=== PATIENT | female | born 1965 | race African-American/Black ===

== ENCOUNTER 2022-02-15 01:27 | Day surgery (SDC) | payer OTHER, SELFPAY ==
[2022-02-09 09:22] VITALS: BMI 29.9
--- NOTE | 2022-02-09 09:29 | PC.NURSE ---
Report to the Outpatient Waiting Room, entrance under the green pavilion located off [facility], at time 0600 on date 02/15/22. OR Time: 0730. - You and your visitor will be asked a series of questions to screen for COVID 19 for your protection. - Only one visitor is allowed at this time. - The patient visitor is requested to leave or wait in car when not with patient. - A mask is required within the hospital. Patients may have clear liquids (water, carbonated beverages, clear teas, apple juice) until 3 hours prior to surgery with a maximum of 20 ounces. - No food from midnight until time of surgery Take the following medications with a SIP of water the morning of surgery: AMLODIPINE Medications to discontinue per physician: N/A Date to take last dose: N/A Please no make-up, nail faroese, hairspray, perfume, deodorant, or body powder the day of surgery. No jewelry (including any body piercings) or valuables the day of surgery, leave them at home. Please take a shower or bath the night before, or the morning of, surgery with an antibacterial soap. Wear comfortable, loose fitting clothing. - Jewelry must be removed prior to entering the operating room. Rings and piercings that are not removed may be cut off. - The hospital will not accept responsibility for valuables. - Please leave all valuables, including medications, at home the day of surgery. If you are going home after surgery, a licensed milk pickup truck driver must drive you home. - NO public transportation without another adult. - We recommend that an adult stay with you for 24 hours following discharge. - We also recommend that you do not drive, make important decision, drink alcoholic beverages, or take any drugs that were not prescribed by your health care provider for at least 24 hours after your discharge time. Follow any additional instructions given to you from your surgeon. If you or anyone in your household have experienced Covid symptoms in the past week, please notify your surgeon or the nurse liaison at the phone number below for possible testing. Telephone instructions given to DANNIE FULLER and asked if any additional questions and then verbalized understanding. Patient advised to call surgeon office or pre surgery nurse liaison [phone] if any additional questions.
--- NOTE | 2022-02-14 13:43 | WPDANESEPPF ---
Anes - Initial Pre Proc Eval Procedure: Operation Date: 02/15/22 07:30 Proposed Procedures p Repair Radial Digital Nerve Right Index Finger - Andrew Piper MD <Gustavo Barnard MD - Last Filed: 02/20/22 14:06> Date/Time: 02/14/22 13:43 <Gustavo Barnard MD - Last Filed: 02/20/22 14:06> Surgeon: Andrew Piper MD <Gustavo Barnard MD - Last Filed: 02/20/22 14:06> Pre Op Diagnosis: Lac Radial Digital Nerve Rt Index Finger <Gustavo Barnard MD - Last Filed: 02/20/22 14:06> Patient Data Age: 56 Gender: F Height: 1.8 m Weight: 97.52 kg <Gustavo Barnard MD - Last Filed: 02/20/22 14:06> Allergies Allergy/AdvReac Type Severity Reaction Status Date / Time No Known Allergies Allergy Unverified 02/09/22 09:20 <Gustavo Barnard MD - Last Filed: 02/20/22 14:06> Home Medications Medication Instructions Recorded Confirmed Type amlodipine 10 mg tablet 10 mg PO DAILY 06/29/19 02/15/22 History chlorthalidone 25 mg tablet 25 mg PO DAILY 06/29/19 02/15/22 History dulaglutide 1.5 mg/0.5 mL 0.5 mg subcut WEEKLY 06/29/19 02/15/22 History subcutaneous pen injector (Trulicity) glimepiride 4 mg tablet 4 mg PO BID 06/29/19 02/15/22 History famotidine 20 mg tablet 20 mg PO DAILY PRN Acid Reflux 02/09/22 02/09/22 History metformin 500 mg tablet 500 mg PO BID 02/09/22 02/15/22 History hydrocodone 5 mg-acetaminophen 325 1 tablet PO Q6H PRN pain #7 tabs 02/15/22 Rx mg tablet <Gustavo Barnard MD - Last Filed: 02/20/22 14:06> Patient hx anesthesia problems: none <Jeff Larios MD - Last Filed: 02/15/22 06:54> Family hx anesthesia problems: none <Jeff Larios MD - Last Filed: 02/15/22 06:54> Results Review: All pre-operative results and documents have been reviewed as part of the pre-operative evaluation. <Gustavo Barnard MD - Last Filed: 02/20/22 14:06> [facility] Past Medical History Medical History: Medical History (Updated 02/15/22 @ 06:53 by Jeff Larios MD) Diabetes GERD (gastroesophageal reflux disease) Hyperlipidemia Hypertension Migraine <Gustavo Barnard MD - Last Filed: 02/20/22 14:06> Surgical History Surgical History: Surgical History History of breast surgery History of endometrial ablation <Gustavo Barnard MD - Last Filed: 02/20/22 14:06> Family History Family History: Family History Mother Patient's mother is Hypertension Sibling Hypertension Family history of diabetes mellitus in first degree relative Carcinoma of colon Family history of malignant neoplasm of uterus Father Family history of lung cancer <Gustavo Barnard MD - Last Filed: 02/20/22 14:06> Social History Social History: Social History Smoking status: Never smoker Second hand tobacco smoke exposure: No Alcohol intake: never Substance use: never Substance use type: does not use Spiritual care concerns: No <Gustavo Barnard MD - Last Filed: 02/20/22 14:06> Anes - Eval Final PreProcedure Day of Procedure 02/14/22 13:43 <Gustavo Barnard MD - Last Filed: 02/20/22 14:06> Patient weight: overweight <Jeff Larios MD - Last Filed: 02/15/22 06:54> Heart: regular rate and rhythm <Jeff Larios MD - Last Filed: 02/15/22 06:54> Lungs: clear to auscultation <Jeff Larios MD - Last Filed: 02/15/22 06:54> Airway: Mallampati scale class II <Jeff Larios MD - Last Filed: 02/15/22 06:54> Neurological: alert and oriented <Jeff Larios MD - Last Filed: 02/15/22 06:54> Last oral intake: >/= 8 hours <Jeff Larios MD - Last Filed: 02/15/22 06:54> ASA classification: III <Jeff Larios MD - Last Filed: 02/15/22 06:54> [facility]
[2022-02-15] VITALS (8 sets, daily range): BP systolic 130–151; BP diastolic 80–91; PULSE 78–98; RESP 10–20; TEMP 36.3–36.7; O2SAT 93–100
--- NOTE | 2022-02-15 06:19 | ECG_ITS ---
Measurements Intervals [place] Rate: 73 P: 48 NV: 173 QRS: 4 QRSD: 98 T: 42 QT: 414 QTc: 458 Interpretive Statements SINUS RHYTHM NORMAL EKG NO PREVIOUS ECG AVAILABLE FOR COMPARISON Electronically Signed On 02-15-2022 18:17:42 CDT by Katie Lopes M.D.
[2022-02-15] MEDS: LACTATED RINGERS 1,000 ML 30 ML IV CONT ×2 (06:40→09:40)
[2022-02-15 07:06] LABS: Anion Gap 8 mmol/L (8-16); Blood Urea Nitrogen 9 mg/dL (7-17); Calcium 9.3 mg/dL (8.4-10.2); Carbon Dioxide 32 mmol/L (22-30); Chloride 100 mmol/L (98-107); Estimated CRCL calculation 112 ml/min; Estimated Glomerular Filt Rate > 60; Glucose 127 mg/dL (65-110); Potassium 4.5 mmol/L (3.4-5.0); Sodium 140 mmol/L (137-145)
--- NOTE | 2022-02-15 07:08 | WPDHPUPDATE1 ---
History and Physical Update Update Date/Time: 02/15/22 07:08 History and Physical has been reviewed, including an updated exam of the patient. There are NO changes in the patient's condition. Risks, benefits, and alternatives have been discussed and questions answered. Patient agrees to proceed with procedure.
[2022-02-15] MEDS: KETOROLAC 30 MG/ML VIAL (*BKC) IV PUSH (08:34)
[2022-02-15] MEDS: LIDO 1%/EPINEPHRINE 1:100,000 20 ML VIAL 10 ML INFILTRATE (08:38)
[2022-02-15] MEDS: BUPIVACAINE HCL 0.25% PF 30 ML VIAL 5 ML INFILTRATE (09:17)
[2022-02-15 09:47] LABS: Glucose Point of Care 173 mg/dl (65-105)
--- NOTE | 2022-02-15 10:15 | W.PM.PROC2 ---
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 She was then taken to the operating room where she was placed supine on the operating table. She was given general anesthesia with an LMA. The right upper extremity was prepped and draped in usual fashion. The site was marked for the ulnar based mid lateral flap centered over the laceration palmar proximal interphalangeal joint the area was infiltrated with 1% lidocaine with epinephrine. The extremity was exsanguinated with an Kishore wrap and the tourniquet inflated to 250 mmHg.. The incisions were made the skin flaps elevated to the ulnar side. These extended about to the midline of the finger. The neurovascular bundle was identified proximally and distally and dissected toward the wound. The neuroma was identified the digital artery was also lacerated at that site. The scarred tissue occluding neuroma were excised under the microscope. The nerve and is easily reach each other. They were freed of adventitial tissue. The repair was done with interrupted 9 0 nylon on on a BB 130-3 needle. 93 sutures were placed. There was no tension on this repair. The skin was then closed with running 5 0 nylon. A soft bandage was applied which contained a dorsal Alumafoam splint with the metacarpophalangeal and interphalangeal joints in 20-30 degrees flexion each.. Some quarter % plain bupivacaine was in infiltrated near the base of the index finger.. She was discharged from the operating room stable condition. Estimated Blood Loss -1.0 Tourniquet Time 64 Drains No Packing No Pathology None sent Complications No immediate complications Condition Stable Disposition PACU
[2022-02-15] MEDS: oxyCODONE HCL (*CRX) 5 MG TAB IR PO (10:53)
== END 2022-02-15 11:40 | disposition home or self-care (01) ==
PROVIDERS: Anesthesiology; PCP Internal Medicine; Visit Provider Plastic Surgery
PROC: (CPT 64831; principal; 2022-02-15 07:30)
DX: S64.490A Injury of digital nerve of right index finger, initial encounter (principal); W25.XXXA Contact with sharp glass, initial encounter; Z79.84 Long term (current) use of oral hypoglycemic drugs; E11.9 Type 2 diabetes mellitus without complications; K21.9 Gastro-esophageal reflux disease without esophagitis; I10 Essential (primary) hypertension; E78.5 Hyperlipidemia, unspecified
CPT/HCPCS: 64831; 36415; 80048; 82948; 93005; A9270; J0330; J1170; J1885; J2250; J2405; J2704; J3010; J7120

== ENCOUNTER 2025-03-26 19:34 | Emergency (ER) | payer OTHER, SELFPAY ==
--- OUTSIDE RECORDS SUMMARY | 2022-06-13 07:44 | XMS_ITS | Continuity of Care Document ---
Author Organization [facility] Address [address] [place] [address] Phone Care Team Providers Care Cyber [employer] Planner Name Role Phone Gaby YVONNE Kimberly Unavailable Unavailable Procedures Procedure Date Therapeutic Activities Neuromuscular Re-Ed Therapeutic Exercise Manual Therapy Hot or Cold Pack Therapeutic Activities Neuromuscular Re-Ed Therapeutic Exercise Manual Therapy Hot or Cold Pack OT Evaluation Low Complexity Therapeutic Activities Therapeutic Exercise Manual Therapy Hot or Cold Pack Progress Note Therapeutic Exercise Therapeutic Exercise Manual Therapy Therapeutic Exercise Manual Therapy Therapeutic Exercise Therapeutic Exercise Manual Therapy Therapeutic Exercise Manual Therapy Therapeutic Exercise Manual Therapy Therapeutic Exercise Manual Therapy PT Evaluation Moderate Complexity Therapeutic Exercise Neuromuscular Re-Ed Manual Therapy Therapeutic Exercise Manual Therapy Therapeutic Exercise Manual Therapy Therapeutic Exercise Manual Therapy Therapeutic Exercise Progress Note Therapeutic Exercise Manual Therapy Therapeutic Exercise Manual Therapy Therapeutic Exercise Manual Therapy Therapeutic Exercise Manual Therapy Therapeutic Exercise Manual Therapy Therapeutic Exercise Manual Therapy Therapeutic Exercise Manual Therapy PT Evaluation Moderate Complexity Therapeutic Exercise Neuromuscular Re-Ed Manual Therapy THERAPEUTIC EXERCISES NEUROMUSCULAR RE-ED HOT/COLD PACK ELECTRIC STIMULATION UNATT THERAPEUTIC EXERCISES NEUROMUSCULAR RE-ED THERAPEUTIC EXERCISES NEUROMUSCULAR RE-ED HOT/COLD PACK ELECTRIC STIMULATION UNATT THERAPEUTIC EXERCISES NEUROMUSCULAR RE-ED THERAPEUTIC EXERCISES NEUROMUSCULAR RE-ED THERAPEUTIC EXERCISES NEUROMUSCULAR RE-ED HOT/COLD PACK ELECTRIC STIMULATION UNATT THERAPEUTIC EXERCISES NEUROMUSCULAR RE-ED /COLD PACK ELECTRIC STIMULATION UNATT THERAPEUTIC EXERCISES NEUROMUSCULAR RE-ED HOT/COLD PACK ELECTRIC STIMULATION UNATT THERAPEUTIC EXERCISES NEUROMUSCULAR RE-ED HOT/COLD PACK ELECTRIC STIMULATION UNATT THERAPEUTIC EXERCISES NEUROMUSCULAR RE-ED HOT/COLD PACK ELECTRIC STIMULATION UNATT THERAPEUTIC EXERCISES MANUAL THERAPY /COLD PACK ELECTRIC STIMULATION UNATT THERAPEUTIC EXERCISES MANUAL THERAPY THERAPEUTIC EXERCISES MANUAL THERAPY THERAPEUTIC EXERCISES MANUAL THERAPY HOT/COLD PACK ELECTRIC STIMULATION UNATT Foam Roll Short THERAPEUTIC EXERCISES MANUAL THERAPY HOT/COLD PACK ELECTRIC STIMULATION UNATT THERAPEUTIC EXERCISES MANUAL THERAPY HOT/COLD PACK ELECTRIC STIMULATION UNATT THERAPEUTIC EXERCISES MANUAL THERAPY HOT/COLD PACK ELECTRIC STIMULATION UNATT THERAPEUTIC EXERCISES MANUAL THERAPY HOT/COLD PACK ELECTRIC STIMULATION UNATT THERAPEUTIC EXERCISES MANUAL THERAPY HOT/COLD PACK ELECTRIC STIMULATION UNATT THERAPEUTIC EXERCISES MANUAL THERAPY HOT/COLD PACK ELECTRIC STIMULATION UNATT PT EVALUATION THERAPEUTIC EXERCISES Advance Directives Directive Yes / No Effective Date File Name No Information Encounters Encounter Description Practice Location Reason(s) For Visit Diagnoses Date Provider Providers Copied on Encounter [facility], [place], [place], [id number], tel:[phone] [place] No Information 2 Gaby Kimberly. . [facility], [place], [place], [address], tel:[phone] [place] No Information 2 Gaby Kimberly. . [facility], [place], [place], [address], [place] tel:[phone] [place] No Information 2 Gaby Kimberly. . [facility], [place], [place], [address], tel:[phone] [place] No Information 2 Gaby Kimberly. . [facility], [place], [place], [address], [place] tel:[phone] [place] Presence of left artificial knee jointPain in left knee 8 [place]. , [place], [place]. [facility], [place], [place], [address], [place] tel:[phone] [place] Presence of left artificial knee jointPain in left knee 8 [place]. , [place]. [facility], [place], [place], [address], [place] tel:[phone] [place] Presence of left artificial knee jointPain in left knee 8 [place]. , [place]. [facility], [place], [place], [address], [place] tel:[phone] [place] Presence of left artificial knee jointPain in left knee 8 [place]. , [place]. [facility], [place], [place], [address], [place] tel:[phone] [place] Presence of left artificial knee jointPain in left knee 8 [place]. , [place]. [facility], [place], [place], [address], [place] tel:[phone] [place] Presence of left artificial knee jointPain in left knee 8 [place]. , [place]. [facility], [place], [place], [address], [place] tel:[phone] [place] Presence of left artificial knee jointPain in left knee 8 [place]. , [place]. [facility], [place], [place], [address], [place] tel:[phone] [place] Presence of left artificial knee jointPain in left knee 8 [place]. , [place]. [facility], [address], [place], [place], [address], [place] tel:[phone] [place] Presence of left artificial knee jointPain in left knee Dec- 0- 8 [place]. , [place]. [facility], [address], [place], [place], [address], [place] tel:[phone] [place] No Information 8 [place]. , [place]. Referring Provider: Gabo Herrera, [address] [place] [address] [address] [facility], [place], [address]. tel:[phone] [place] [address], [address], [place], [place], [address], [place] tel:[phone] [place] No Information 8 [place]. , [place]. Referring Provider: Gabo Herrera, [address] [place] [address] [address] [facility], [place], [address]. tel:[phone] [place] [address], [address], [place], [place], [address], [place] tel:[phone] [place] No Information 8 [place]. , [place]. Referring Provider: Gabo Herrera, [address] [place] [address] [address] [facility], [place], [address]. tel:[phone] [place] [address] [address], [place], [place], [address], [place] tel:[phone] [place] No Information 8 [place]. , [place]. Referring Provider: Gabo Herrera, [address] [place] [address] [address] [facility], [place], [address]. tel:[phone] [place] [address], [address], [place], [place], [address], [place] tel:[phone] [place] No Information 8 [place]. , [place]. Referring Provider: Gabo Herrera, [address] [place] [address] [address] [facility], [place], [address]. tel:[phone] [place] [address], [facility] [address], [place], [address], [place] tel:[phone] [place] No Information Taj-0 2-201 8 [place]. , [place]. Referring Provider: Gabo Herrera, [address] [place] [address], [place], [address]. tel:[phone] [place] [address] [facility] [address], [place], [place], [address], [place] tel:[phone] [place] No Information Dec-2 8-201 7 [place] , [place]. Referring Provider: Gabo Herrera, [address] [place] [address], [place], [address]. tel:[phone] [place] [address], [address] [place], [place] [address], [place], [address], [place] tel:[phone] [place] No Information Jun-2 6-201 7 [place]. , [place]. Referring Provider: Gabo Herrera, [address] [place] [address], [place], [address]. tel:[phone] [place] [address] [place], [place] [address], [place], [place], [address], [place] tel:[phone] [place] No Information Jun-2 0-201 7 [place]. , [place]. Referring Provider: Gabo Herrera, [address] [place] [address], [place], [address]. tel:[phone] [place] [address] [address], [place], [place], [address], [place] tel:[phone] [place] No Information Dec-1 8-201 7 [place]. , [place]. Referring Provider: Gabo Herrera, [address] [place] [address], [place], [address]. tel:[phone] [place] [address], [address], [place], [place], [address], [place] tel:[phone] [place] No Information Dec-1 5-201 7 [place]. , [place] Referring Provider: Gabo Herrera, [address] [place] [address], [place], [address]. tel:[phone] [place] [address], [address], [place], [address], [place] tel:[phone] [place] Other specified postprocedural statesPain in left kneeStiffness of left knee, not elsewhere classified [facility] [place] [place] Referring Provider: Gabo Herrera, [address] [place] [address], [place], [address]. tel:[phone] [place] [address], [address] [place], [place] [address], [place], [place], [address], [place] tel:[phone] [place] No Information Mar- [facility] [place] [place] Referring Provider: Gabo Herrera, [address] [place] [address], [place], [address]. tel:[phone] [place] [address], [address], [place], [address], [place] tel:[phone] [place] No Information Mar- 6 [facility] [place] Referring Provider: Gabo Herrera, [address] [place] [address], [place], [address]. tel:[phone] [place] [address], [address], [place], [place], [address], [place] tel:[phone] [place] No Information Mar-0 6 [place]. , [place] Referring Provider: Gabo Herrera, [address] [place] [address], [place], [address]. tel:[phone] [place] [address], [address], [place], [address], [place] tel:[phone] [place] No Information 3 6 [place] , [place] Referring Provider: Gabo Herrera, [address] [place] [address], [place], [address]. tel:[phone] [place] [address], [address], [place], [place], [address], [place] tel:[phone] [place] No Information 6 [place]. , [place] Referring Provider: Gabo Herrera, [address] [place] [address], [place], [address]. tel:[phone] [place] [address], [address], [place], [address], [place] tel:[phone] [place] No Information 6 [place]. , [place] Referring Provider: Gabo Herrera, [address] [place] [address], [place], [address]. tel:[phone] [place] [address] [address], [place], [place], [address], [place] tel:[phone] [place] No Information 6 [place]. , [place] Referring Provider: Gabo Herrera, [address] [place] [address], [place], [address]. tel:[phone] [place] [address], [address], [place], [place], [address], [place] tel:[phone] [place] No Information 6 [place]. , [place]. Referring Provider: Gabo Herrera, [address] [place] [address], [place], [address]. tel:[phone] [place] [address] [address], [place], [address], [place] tel:[phone] [place] No Information 6 [place]. , [place] Referring Provider: Gabo Herrera, [address] [place] [address], [place], [address]. tel:[phone] [place] [address], [address], [place], [place], [address], [place] tel:[phone] [place] No Information 6 [place]. , [place] Referring Provider: Gabo Herrera, [address] [place] [address], [place], [address]. tel:[phone] [facility], [address], [place], [place], [address], [place] tel:[phone] [place] No Information Feb-1 0- 6 [place]. , [place] Referring Provider: Gabo Herrera, [address] [place] [address] [address] [facility], [place], [address]. tel:[phone] [facility], [address], [place], [place], [address], [place] tel:[phone] [place] No Information Aug-0 8-201 6 Rimmamatilde Johnson. [id number] [place] [address], [address], [place], [place], [facility], [place]. tel: [phone] Referring Provider: Gabo Herrera, [address] [place] [address] [address] [facility], [place], [address]. tel:[phone] [place] [address], [address], [place], [address], [place] tel:[phone] [place] No Information Feb-0 5-201 6 [place]. , [place]. Referring Provider: Gabo Herrera, [address] [place] [address] [address] [facility], [place], [address]. tel:[phone] [place] [address], [address], [place], [address], [place] tel:[phone] [place] No Information Feb-0 3201 6 [place]. , [place]. Referring Provider: Gabo Herrera, [address] [place] [address] [address] [facility], [place], [address]. tel:[phone] [place] [address], [address], [place], [address], [place] tel:[phone] [place] No Information Feb-0 1 6 [place]. , [place]. Referring Provider: Gabo Herrera, [address] [place] [address] [address] [facility], [place], [address]. tel:[phone] [facility], [address], [place], [address], [place] tel:[phone] [place] No Information 7 6 [place]. Referring Provider: Gabo Herrera, [address] [place] [address] [address] [facility], [place], [address]. tel:[phone] [place] [address], [address] [place] [address] [address], [place], [place], [address], tel:[phone] [place] No Information 6-201 6 [place] Referring Provider: Gabo Herrera, [address] [place] [address] [address] [facility], [place], [address]. tel:[phone] [place] [address] [place] [address], [id number], tel:[phone] [place] No Information 6 [place] Referring Provider: Gabo Herrera, [address] [place] [address], [place], [address]. tel:[phone] [place] [address] [place] [address], [id number], [place] tel:[phone] [place] No Information 6 Karla Johnson. [address] [place] [address], [address], [place], [facility], . tel: [phone] Referring Provider: Gabo Herrera, [address] [place] [address], [place], [address]. tel:[phone] [facility] [address] [place] [address], [id number], [place] tel:[phone] [place] No Information 0 6 [place] Referring Provider: Gabo Herrera, [address] [place] [address] [address] [facility], [place], [place], [facility]. tel:[phone] [facility] [address], [place], [place], [address], [place] tel:[phone] [place] Incomplete rotatr-cuff tear/ruptr of l shoulder, not traumaPain in left shoulderMuscle weakness (generalized)St iffness of left shoulder, not elsewhere classified 6 [place], . Referring Provider: Gabo Herrera, [address], [place], [address]. tel:[phone] Family History Family Member Type Diagnosis Age At Onset No Information Payers Payer name Insurance type Covered libertarian ID Zoila aleman(bhavik Jay CI [id number] Social History Type Description Quantity Date Captured Comments Sex Female Smoking Status No Information Chief Complaint And Reason For Visit No Information Reason For Referral Reason For Referral No Information Plan Of Treatment Date Type Action Status Referral Ordered: Referrals: Specialist. Evaluate and Treat (related to Adjustment disorder with depressed mood) ordered Referral Ordered: Depression: Depression management program timeframe: 1 Day. (related to Depression) ordered Referral Ordered: Clinical Psychology (related to Depression) ordered History Of Present Illness Encounter Date Complaint History Of Prese nt Illness No Information Functional Status Date Functional Assessmen t No Information Instructions Date Instruction Additional Infor mation Dietary needs education Related to Overweight Dietary needs education Related to Overweight Prescribed activity/exercise edu cation Related to Overweight Prescribed activity/exercise edu cation Related to Overweight Assessments Type Assessment Date No Information Patient Care Teams Name Effective Dates (start - stop) Status Members No Information
--- OUTSIDE RECORDS SUMMARY | 2022-06-13 07:44 | XMS_ITS | Continuity of Care Document ---
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 . [facility], [place], [place], [address], tel:[phone] [place] No Information 2 Gaby Kimberly. . [facility], [place], [place], [address], [place] tel:[phone] [place] No Information 2 Gaby Kimberly. . [facility], [place], [place], [address], tel:[phone] [place] No Information 2 Gaby Kimberly. . [facility], [place], [place], [id number], [place] tel:[phone] [place] Presence of left artificial knee jointPain in left knee 8 [place]. , [place]. [facility], [place], [place], [id number], [place] tel:[phone] [place] Presence of left artificial knee jointPain in left knee 8 [place]. , [place]. [facility], [place], [place], [id number], [place] tel:[phone] [place] Presence of left artificial knee jointPain in left knee 8 [place]. , [place]. [facility], [place], [place], [id number], [place] tel:[phone] [place] Presence of left artificial knee jointPain in left knee 8 [place]. , [place]. [facility], [place], [place], [id number], [place] tel:[phone] [place] Presence of left artificial knee jointPain in left knee 8 [place]. , [place]. [facility], [place], [place], [address], [place] tel:[phone] [place] Presence of left artificial knee jointPain in left knee 8 [place]. , [place]. [facility], [place], [place], [id number], [place] tel:[phone] [place] Presence of left artificial knee jointPain in left knee 8 [place]. , [place]. [facility], [place], [place], [address], [place] tel:[phone] [place] Presence of left artificial knee jointPain in left knee 8 [place]. , [place]. [facility], [address], [place], [place], [address], [place] tel:[phone] [place] Presence of left artificial knee jointPain in left knee Dec- 0- 8 [place]. , [place]. [facility], [address], [place], [place], [address], [place] tel:[phone] [place] No Information 8 [place]. , [place]. Referring Provider: Gabo Herrera, [address] [place] [address] [address] [facility], [place], [address]. tel:[phone] [place] [address], [address], [place], [place], [address], [place] tel:[phone] [place] No Information 8 [place]. , [place]. Referring Provider: Gabo Herrera, [address] [place] [address] [address] [facility], [place], [address]. tel:[phone] [place] [address], [address], [place], [place], [address], [place] tel:[phone] [place] No Information 8 [place]. , [place]. Referring Provider: Gabo Herrera, [address] [place] [address] [address] [facility], [place], [address]. tel:[phone] [place] [address] [address], [place], [place], [address], [place] tel:[phone] [place] No Information 8 [place]. , [place]. Referring Provider: Gabo Herrera, [address] [place] [address] [address] [facility], [place], [address]. tel:[phone] [place] [address], [address], [place], [place], [address], [place] tel:[phone] [place] No Information 8 [place]. , [place]. Referring Provider: aGbo Herrera, [address] [place] [address] [address] [facility], [place], [address]. tel:[phone] [place] [address], [facility] [address], [place], [place], [address], [place] tel:[phone] [place] No Information Taj-0 2-201 8 [place]. , [place]. Referring Provider: Gabo Herrera, [address] [place] [address], [place], [address]. tel:[phone] [place] [address] [facility] [address], [place], [place], [address], [place] tel:[phone] [place] No Information Dec-2 8-201 7 [place]. , [place]. Referring Provider: Gabo Herrera, [address] [place] [address], [place], [address]. tel:[phone] [place] [address], [address] [place], [place] [address], [place], [place], [address], [place] tel:[phone] [place] No Information Jun-2 6-201 7 [place]. , [place]. Referring Provider: Gabo Herrera, [address] [place] [address], [place], [address]. tel:[phone] [place] [address] [place], [place] [address], [place], [place], [address], [place] tel:[phone] [place] No Information Jun-2 0-201 7 [place]. , [place]. Referring Provider: Gabo Herrera, [address] [place] [address], [place], [address]. tel:[phone] [place] [address] [address] [facility], [place], [place], [id number], [place] tel:[phone] [place] No Information Dec-1 8-201 7 [place]. , [place]. Referring Provider: Gabo Herrera, [address] [place] [address], [place], [address]. tel:[phone] [place] [address], [address], [place], [place], [address], [place] tel:[phone] [place] No Information Dec-1 5-201 7 [place]. , [place]. Referring Provider: Gabo Herrera, [address] [place] [address], [place], [address]. tel:[phone] [place] [address], [address] [facility], [place], [place], [address], [place] tel:[phone] [place] Other specified postprocedural statesPain in left kneeStiffness of left knee, not elsewhere classified 7 [facility] , [place]. Referring Provider: Gabo Herrera, [address] [place] [address], [place], [address]. tel:[phone] [place] [address], [address] [place], [place] [address], [place], [place], [address], [place] tel:[phone] [place] No Information Mar- 6 [facility] , [place]. Referring Provider: Gabo Herrera, [address] [place] [address], [place], [address]. tel:[phone] [place] [address], [address] [facility], [place], [place], [address], [place] tel:[phone] [place] No Information Mar- 6 [facility] , [place]. Referring Provider: Gabo Herrera, [address] [place] [address], [place], [address]. tel:[phone] [place] [address], [address] [facility], [place], [place], [address], [place] tel:[phone] [place] No Information Mar-0 6 [place]. , [place]. Referring Provider: Gabo Herrera, [address] [place] [address], [place], [address]. tel:[phone] [place] [address], [address] [facility], [place], [place], [address], [place] tel:[phone] [place] No Information 3 6 [place]. , [place]. Referring Provider: Gabo Herrera, [address] [place] [address], [place], [address]. tel:[phone] [place] [address], [address] [facility], [place], [place], [address], [place] tel:[phone] [place] No Information 6 [place]. , [place]. Referring Provider: Gabo Herrera, [address] [place] [address], [place], [address]. tel:[phone] [place] [address], [address] [facility], [place], [place], [address], [place] tel:[phone] [place] No Information 6 [place]. , [place]. Referring Provider: Gabo Herrera, [address] [place] [address], [place], [address]. tel:[phone] [place] [address] [address] [facility], [place], [place], [address], [place] tel:[phone] [place] No Information 6 [place]. , [place]. Referring Provider: Gabo Herrera, [address] [place] [address], [place], [address]. tel:[phone] [place] [address], [address] [facility], [place], [place], [address], [place] tel:[phone] [place] No Information 6 [place]. , [place]. Referring Provider: Gabo Herrera, [address] [place] [address], [place], [address]. tel:[phone] [place] [address] [address] [facility], [place], [place], [address], [place] tel:[phone] [place] No Information 6 [place]. , [place]. Referring Provider: Gabo Herrera, [address] [place] [address], [place], [address]. tel:[phone] [place] [address], [address] [facility], [place], [place], [address], [place] tel:[phone] [place] No Information 6 [place]. , [place]. Referring Provider: Gabo Herrera, [address] [place] [address], [place], [address]. tel:[phone] [facility], [address], [place], [place], [address], [place] tel:[phone] [place] No Information Feb-1 0- 6 [place]. , [place]. Referring Provider: Gabo Herrera, [address] [place] [address] [address] [facility], [place], [address]. tel:[phone] [facility], [address], [place], [place], [address], [place] tel:[phone] [place] No Information Aug-0 8-201 6 Rimmamatilde Johnson. [address] [place] [address], [address], [place], [place], [facility], [place]. tel: [phone] Referring Provider: Gabo Herrera, [address] [place] [address] [address] [facility], [place], [address]. tel:[phone] [place] [address], [address] [facility], [place], [place], [address], [place] tel:[phone] [place] No Information Feb-0 5-201 6 [place]. , [place]. Referring Provider: Gabo Herrera, [address] [place] [address] [address] [facility], [place], [address]. tel:[phone] [place] [address], [address] [facility], [place], [address], [place] tel:[phone] [place] No Information Feb-0 3201 6 [place]. , [place]. Referring Provider: Gabo Herrera, [address] [place] [address] [address] [facility], [place], [address]. tel:[phone] [place] [address], [address], [place], [place], [address], [place] tel:[phone] [place] No Information Feb-0 1 6 [place]. , [place]. Referring Provider: Gabo Herrera, [address] [place] [address] [address] [facility], [place], [address]. tel:[phone] [facility], [address], [place], [place], [address], [place] tel:[phone] [place] No Information 7 6 [place], [place]. Referring Provider: Gabo Herrera, [address] [place] [address] [address] [facility], [place], [address]. tel:[phone] [place] [address], [address] [place] [address] [address], [place], [place], [address], tel:[phone] [place] No Information 6-201 6 [place]. Referring Provider: Gabo Herrera, [address] [place] [address] [address] [facility], [place], [address]. tel:[phone] [place] [address] [place] [address], [id number], tel:[phone] [place] No Information 6 [place]. Referring Provider: Gabo Herrera, [address] [place] [address], [place], [address]. tel:[phone] [place] [address] [place] [address], [id number], [place] tel:[phone] [place] No Information 6 Karla Johnson. [address] [place] [address], [address], [place], [facility], . tel: [phone] Referring Provider: Gabo Herrera, [address] [place] [address], [place], [address]. tel:[phone] [facility] [address] [place] [address], [id number], [place] tel:[phone] [place] No Information 0 6 [place]. Referring Provider: Gabo Herrera, [address] [place] [address] [address] [facility], [place], [place], [facility]. tel:[phone] [facility] [address], [place], [place], [address], [place] tel:[phone] [place] Incomplete rotatr-cuff tear/ruptr of l shoulder, not traumaPain in left shoulderMuscle weakness (generalized)St iffness of left shoulder, not elsewhere classified 6 [place], . Referring Provider: Gabo Herrera, [address] [facility] [address], [place], [address]. tel:[phone] Family History Family Member Type Diagnosis Age At Onset No Information Payers Payer name Insurance type Covered green party ID Zoila aleman(bhavik Jay CI [id number] Social History Type Description Quantity Date Captured [...]
--- NOTE | ~2025-03-26 | XR_ITS ---
X-rays right knee Indication: Pain Comparison: None Technique: 4 views right knee Findings/Impression: 1. No fracture, dislocation, or effusion right knee. 2. Severe medial compartment and moderate lateral and patellofemoral compartment joint space narrowing. Reviewed, dictated and finalized at location R.
[2025-03-26 19:36] VITALS: BP 149/91; PULSE 94; RESP 15; TEMP 36.6; O2SAT 98
--- OUTSIDE RECORDS SUMMARY | 2025-03-26 19:36 | XMS_ITS | Clinical Summary ---
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 Gender Identity Not on file Sexual Orientation Not on file Plan of Treatment Health Maintenance Due Date Last Done Comments Hepatitis C Virus (HCV) Screening 1965 TdaP Immunization 1965 Pap Smear 12/28/1984 Cervical Cancer Screening (CCS) 12/28/1993 HPV/Cotest 12/28/1993 Cologuard 12/28/2008 Colonoscopy 12/28/2008 Colorectal Cancer Screening 12/28/2008 Immunochemical Fecal Occult Blood 12/28/2008 Pneumococcal Immunization (5 0+ years) (1 of 1 - PCV) 12/28/2013 Zoster Immunization (1 of 2) 12/28/2013 SARS-COV-2 Immunization ( - 2023- season) 2024 Influenza Immunization (#1) 2025 Respiratory Syncytial Virus (RSV) Immunization (Adult) (1 - 1-dose 75+ series) 12/28/2038 Hepatitis B Immunization Aged Out No longer eligible based on patient's age to complete this topic Human Papillomavirus (HPV) Immunization Aged Out No longer eligible b ased on patient's age to complete this topic Meningococcal Immunization (ACWY) Aged Out No longer eligible based on patient's age to complete this topic Rotavirus Immunization Aged Out No lo nger eligible based on patient's age to complete this topic
--- OUTSIDE RECORDS SUMMARY | 2025-03-26 19:36 | XMS_ITS | Clinical Summary ---
Author Organization [facility] [address] [place] [id number] Care Team Providers Care Monitor Worker Name Role Phone Patrizia Olguin PTA Unavailable Unavailable Patricia Dill NP Primary Care Provider [phone] Allergies No known active allergies Medications hydroCHLOROthiazi de (HYDRODIURIL) 25 mg tablet Take 1 tablet (25 mg total) by mouth daily 017 Active omega-3 fatty acids-fish oil 300-1,000 mg capsule Take 2 capsules (2 g total) by mouth daily Active rosuvastatin (CRESTOR) 20 mg tabletIndications :Mixed hyperlipidemia Take 1 tablet (20 mg total) by mouth daily 90 tablet 3 024 Active metFORMIN (GLUCOPHAGE) 500 mg tabletIndications :Type 2 diabetes mellitus with hyperglycemia, with long-term current use of insulin (HCC) Take 1 tablet (500 mg total) by mouth 2 (two) times a day with meals 180 tablet 3 024 Active bisacodyl EC (DULCOLAX EC) 5 mg EC tabletIndications :constipation Take 1 tablet (5 mg total) by mouth daily as needed for constipation 4 tablet 024 Active glimepiride (AMARYL) 4 mg tablet Take 1 tablet (4 mg total) by mouth 2 (two) times a day Active fluticasone propionate (FLONASE) 50 mcg/actuation nasal spray Administer 1 spray into each nostril daily as needed for rhinitis Active loratadine (Claritin) 10 mg tablet Take 1 tablet (10 mg total) by mouth daily Active TRUEplus Pen Needle 32 gauge x 532 needle USE 1 ONCE DAILY 024 Active cholecalciferol (VITAMIN D-3) 32724 unit capsule Take 1 capsule (10,000 Units total) by mouth daily Active amLODIPine (NORVASC) 10 mg tablet Take 1 tablet (10 mg total) by mouth daily Active docusate sodium (COLACE) 100 mg capsuleIndication s:constipation Take 1 capsule (100 mg total) by mouth 2 (two) times a day Active psyllium, aspartame, SF (METAMUCIL SF) 3.4 gram packet Take 1 packet by mouth daily Active blood-glucose meter,continuous (Dexcom G7 Manager Retail Sales) miscIndications:T ype 2 diabetes mellitus with hyperglycemia, with long-term current use of insulin ([facility]) Check blood sugars 4-6 times daily 1 each 024 Active blood-glucose sensor (Dexcom G7 Sensor) deviceIndications :Type 2 diabetes mellitus with hyperglycemia, with long-term current use of insulin ([facility]) Change every 10 days. Check blood sugars 4-6 times daily 3 each 024 Active blood-glucose meter miscIndications:T ype 2 diabetes mellitus with hyperglycemia, with long-term current use of insulin ([facility]) Use daily or as directed for monitoring of diabetes. 1 each 024 Active blood glucose diagnostic (glucose blood) stripIndications: Type 2 diabetes mellitus with hyperglycemia, with long-term current use of insulin ([facility]) One strip three times daily 300 each 1 024 2024 Active lancets miscIndications:T ype 2 diabetes mellitus with hyperglycemia, with long-term current use of insulin ([facility]) 1 each by other route 3 (three) times a day 300 each 1 024 Active semaglutide (RYBELSUS) 14 mg tablet Take 1 tablet (14 mg total) by mouth desktop publishing associate before breakfast 30 tablet 2 025 Active SEMGLEE-yfgn 100 unit/mL (3 mL) pen for injectionIndicati ons:Type 2 diabetes mellitus with hyperglycemia, with long-term current use of insulin (HCC) Inject 30 Units under the skin daily 15 mL 2 025 Active insulin glargine 100 unit/mL (3 mL) pen for injection Inject under the skin 22 units 2023 Discontinued Active Problems Problem Noted Date Diagnosed Date Screening for colon cancer 05/01/2024 Class 1 obesity with serious comorbidity and body mass index (BMI) of 30.0 to 30.9 in adult 02/24/2024 Assessment & Plan (03/10/2024 1:10 PM CDT): HPI: Condition is not at/near goal. Goal BMI <30. A&P: Healthy, high-protein, lower carbohydrate, lower fat lifestyle and exercise for 150min/week recommended. Assessment & Plan (02/24/2024 12:13 PM CDT): HPI: Condition is not at/near goal. Goal BMI <30. A&P: Healthy, high-protein, lower carbohydrate, lower fat lifestyle and exercise for 150min/week recommended. Vitamin D deficiency 02/24/2024 Assessment & Plan (02/24/2024 12:19 PM CDT): HPI: Condition is unknown, no data to review at this time to make an evaluation. A&P: Discussed/ordered labs. Hyperlipidemia 04/25/2017 Assessment & Plan (06/10/2024 9:36 AM TRAFFIC MONITOR SPECIALIST): HPI: Condition is not at/near goal. Has not been consistent with statin therapy in the past due to causing dry mouth. Patient requesting switch in statin therapy. Previously on Lovastatin. Lab Results Component Value Date TRIG 159 (H) 02/24/2024 TRIG 123 04/26/2017 HDL 52 02/24/2024 HDL 47 (L) 04/26/2017 LDLCALC 149 (H) 02/24/2024 NONHDLCHOL 181 02/24/2024 NONHDLCHOL 149 (H) 04/26/2017 A&P: Discussed/ordered labs. Recommend low-fat diet & increased activity. Continue Rosuvastatin 20 mg nightly. Assessment & Plan (03/10/2024 1:39 PM CDT): HPI: Condition is not at/near goal. Has not been consistent with statin therapy in the past due to causing dry mouth. Patient requesting switch in statin therapy. Lab Results Component Value Date TRIG 159 (H) 02/24/2024 TRIG 123 04/26/2017 HDL 52 02/24/2024 HDL 47 (L) 04/26/2017 LDLCALC 149 (H) 02/24/2024 NONHDLCHOL 181 02/24/2024 NONHDLCHOL 149 (H) 04/26/2017 A&P: Discussed/ordered labs. Recommend low-fat diet & increased activity. We will discontinue lovastatin 20 mg nightly. Begin taking rosuvastatin 20 mg nightly. Assessment & Plan (02/24/2024 12:24 PM CDT): HPI: Condition is unknown, no data to review at this time to make an evaluation. Patient does admit to not being consistent with statin therapy. A&P: Discussed/ordered labs. Continue lovastatin 20 mg nightly and [place] 3. Will follow up in a few weeks to discuss lab results. Recommend fish oil 2000-2400mg of EPA/DHA. You will find this by looking at the ingredients section of the bottle of fish oil. Please add the EPA and DHA numbers together and take enough capsules to meet the 2000-2400mg every day. This dose will help bring down your triglycerides along with a lower carb lifestyle and exercise. The brand Playdek Professional [place] 3 2100 Olcenic Blend is a good brand and you will only need to take one capsule daily. Hypertension 04/25/2017 Assessment & Plan (06/10/2024 9:48 AM TRAFFIC MONITOR SPECIALIST): HPI: Condition is stable. A&P: Discussed/ordered labs. Continue Amlodipine 10 mg daily and Hydrochlorothiazide 25 mg daily. Assessment & Plan (03/10/2024 1:11 PM CDT): HPI: Condition is stable. A&P: Discussed/ordered labs. Continue on amlodipine 5 mg daily and hydrochlorothiazide 25 mg daily. Assessment & Plan (02/24/2024 12:14 PM CDT): HPI: Condition is stable. A&P: Discussed/ordered labs. Continue on amlodipine 5 mg daily and hydrochlorothiazide 25 mg daily. Seasonal rhinitis 04/25/2017 Type 2 diabetes mellitus 04/25/2017 Assessment & Plan (06/10/2024 12:41 PM TRAFFIC MONITOR SPECIALIST): Condition is improving, but not at goal. Personally reviewed most recent A1c 8.1% was 10.7% Goal A1c 6.9% or less, as close to <6.5%. Lab Results Component Value Date HGBA1C 8.1 06/10/2024 HGBA1C 10.7 (H) 02/24/2024 HGBA1C 7.7 (H) 11/27/2017 Maintenance Diabetic (monofilament) foot exam - protective senses intact. Last annual dilated eye exam was 03/2023 - will fax for results. Last annual urine microalbumin/creatinine ratio. Lab Results Component Value Date ALBCREATRATU 10 02/24/2024 BP Management B/P today - good. Patient currently is not on an TRUDI/ARB. Goal blood pressure is <140/90, long-term blood pressure goal is to be as close to 120/80 as possible. Dyslipidemia Management Personally reviewed most recent LDL as shown below. Patient is on a statin cholesterol lowering medication - Rosuvastatin. Goal of less than 70. Lab Results Component Value Date LDLCALC 149 (H) 02/24/2024 Diabetes Complications History of macrovascular disease (CVA, [place], PVD) is not present. Complications secondary to diabetes - none. Taking baby aspirin daily: No. Smoking status: non-smoker. Medications High dose Metformin not tolerated due to GI upset. Ozempic not covered. Trulicty poorly tolerated due to side effects of nausea, vomiting, constipation, severe abdominal pain. Will instead start Mounjaro in hopes better tolerated/decreased side effects. She has been checking blood sugars at home fasting in the AM without Trulicity (since she ran out) have been around 220s-250s. Is asking for CGM machine - will order today. Continue: Glimepiride 4 mg twice daily. Metformin 500 mg twice daily. Increase: Insulin glargine from 22 units to 25 units daily. Start: Mounjaro 2.5mg weekly x 4 wks, then increase to 5mg weekly x 4 wks, then increase to 7.5mg weekly x 4 wks Discussed that fluid in window needs to be clear, prime with the 2 dots on first use of pen only. Patient showed how to use the medication. Discussed the importance of site rotation, stay 2 fingerbreadths away from belly button. Inject until you hear the full click, then count to 5 before removing pen. Discussed the importance of cutting meals in half starting after first dose. Discussed that this will slow gastric emptying which will make pt feel full longer and fill up faster. Discussed the one bite or one gulp too much scenario that can increase nausea/vomiting. Listen to your body. Reiterated that pt does not have family or personal history of medullary thyroid cancer or pancreatitis. Discussed labs/ordered labs that have been ordered if applicable. Discussed eating a healthy, low carb diet - include fresh fruits and vegetables daily. Diabetic education/nutritional counseling available if you have not had this before or annually. Encouraged to try moving at least a total of 30 minutes/day. Just move more. Instructed to wash, dry, lotion, and check feet daily. Instructed to notify office if blood sugars are less than 80 or greater than 250 for 3 days. Assessment & Plan (03/10/2024 1:41 PM CDT): Condition is not at/near goal. Personally reviewed most recent A1c 10.7% was 7.7%. Goal A1c 6.9% or less, as close to <6.5%. Lab Results Component Value Date HGBA1C 10.7 (H) 02/24/2024 HGBA1C 7.7 (H) 11/27/2017 HGBA1C 7.9 (H) 04/26/2017 Maintenance Diabetic (monofilament) foot exam - protective senses intact. Last annual dilated eye exam was 03/2023 - will fax for results. Last annual urine microalbumin/creatinine ratio. Lab Results Component Value Date ALBCREATRATU 10 02/24/2024 BP Management B/P today - good. Patient currently is not on an TRUDI/ARB. Goal blood pressure is <140/90, long-term blood pressure goal is to be as close to 120/80 as possible. Dyslipidemia Management Personally reviewed most recent LDL as shown below. Patient is on a statin cholesterol lowering medication - Rosuvastatin. Goal of less than 70. Lab Results Component Value Date LDLCALC 149 (H) 02/24/2024 Diabetes Complications History of macrovascular disease (CVA, [place], PVD) is not present. Complications secondary to diabetes - none. Taking baby aspirin daily: No. Smoking status: non-smoker. Medications Continue: Glimepiride 1 mg twice daily. Insulin glargine 22 units daily. Start: Metformin 500 mg twice daily. Ozempic 0.25mg injection once weekly x4 weeks, then increase to 0.5 mg injection once weekly x8 weeks. Has also been checking AM fasting blood sugars which she states has been around the 200s. Discussed labs/ordered labs that have been ordered if applicable. Discussed eating a healthy, low carb diet - include fresh fruits and vegetables daily. Diabetic education/nutritional counseling available if you have not had this before or annually. Encouraged to try moving at least a total of 30 minutes/day. Just move more. Instructed to wash, dry, lotion, and check feet daily. Instructed to notify office if blood sugars are less than 80 or greater than 250 for 3 days. Assessment & Plan (02/24/2024 12:18 PM CDT): Condition is unknown, no data to review at this time to make an evaluation. Personally reviewed most recent A1c ?% was ?%. Goal A1c 6.9% or less, as close to <6.5%. Lab Results Component Value Date HGBA1C 7.7 (H) 11/27/2017 HGBA1C 7.9 (H) 04/26/2017 Maintenance Diabetic (monofilament) foot exam - protective senses intact. Last annual dilated eye exam was 03/2023 - will fax for results. Last annual urine microalbumin/creatinine ratio unknown - ordered today. No results found for: ALBCREATRATU BP Management B/P today - good. Patient currently is not on an TRUDI/ARB. Goal blood pressure is <140/90, long-term blood pressure goal is to be as close to 120/80 as possible. Dyslipidemia Management Personally reviewed most recent LDL as shown below. Patient is on a statin cholesterol lowering medication - Lovastatin. Goal of less than 70. No results found for: LDLCALC Diabetes Complications History of macrovascular disease (CVA, [place], PVD) is not present. Complications secondary to diabetes - none. Taking baby aspirin daily: No. Smoking status: non-smoker. Medications Patient is not intolerant to Metformin but does refuse to take - states she's read that it is bad for you. Continue: Glimepiride 1 mg twice daily. Insulin glargine 22 units daily. Has also been checking AM fasting blood sugars which she states has been around the 200s. Will follow up in a few weeks to discuss lab results/adjust medications. Discussed labs/ordered labs that have been ordered if applicable. Discussed eating a healthy, low carb diet - include fresh fruits and vegetables daily. Diabetic education/nutritional counseling available if you have not had this before or annually. Encouraged to try moving at least a total of 30 minutes/day. Just move more. Instructed to wash, dry, lotion, and check feet daily. Instructed to notify office if blood sugars are less than 80 or greater than 250 for 3 days. Sciatica of right side 12/31/2016 Assessment & Plan (12/31/2016 2:12 PM CDT): The patient was not getting any relief for her pain with nonsteroidal anti-inflammatories. She was prescribed a Medrol Dosepak to take in descending order. If she is not getting better with medication she was advised to get back into her maintenance painter Arthritis of right knee 12/31/2016 Assessment & Plan (12/31/2016 2:13 PM CDT): The patient was advised of the knee sleeves could be obtained through the drugstore is under not generally provided through the offices the following Medicare guidelines. Ankylosis of joint of shoulder region 02/20/2016 Overview (10/12/2016): Ankylosis, left shoulder Degeneration of intervertebral disc of lumbar re gion 09/19/2015 Overview (10/12/2016): DDD (degenerative disc disease), lumbar Chondromalacia of patella 05/29/2013 Chronic knee pain after tota l replacement of left knee joint 12/02/2012 Assessment & Plan (03/10/2024 1:42 PM CDT): HPI: Condition is not at/near goal. Did have total knee replacement 12/10/2017. States she is feeling like she is having worsening stiffness/pain. Denies any specific injury. Does not currently follow up with Orthopedics. States that she takes ibuprofen when it bothers her which typically helps. Recent left knee imaging shows small effusion but otherwise unremarkable hardware. A&P: Discussed/ordered labs. We will send to physical therapy and refer to orthopedic surgery for further management. Assessment & Plan (02/24/2024 12:23 PM CDT): HPI: Condition is not at/near goal. Did have total knee replacement 12/10/2017. States she is feeling like she is having worsening stiffness/pain. Denies any specific injury. Does not currently follow up with Orthopedics. States that she takes ibuprofen when it bothers her which typically helps. A&P: Discussed/ordered labs. Will get left knee xray & will follow up in a few weeks to discuss results. Resolved Problems Problem Noted Date Diagnosed Date Resolved Date Aftercare following left kne e joint replacement surgery 12/11/2017 02/24/2024 Primary osteoarthritis of left knee 11/25/2017 02/24/2024 Overview (11/25/2017): Added automatically from request for surgery [id number] Acute medial meniscal tear, left, subsequent encounter 05/06/2017 02/24/2024 Assessment & Plan (07/15/2017 8:25 AM TRAFFIC MONITOR SPECIALIST): Patient's symptoms are likely due to her underlying arthritis. She may find the use of naproxen helpful. She plans on return to work in two weeks Assessment & Plan (05/06/2017 5:23 PM CDT): Patient has a medial meniscal tear seen by MRI. She is having ongoing pain is not responding to her underlying treatment of her arthritis and does not appear to have end-stage arthritis. As such she wants proceed with definitive treatment have recommended arthroscopic partial meniscectomy. She was advised if she has significant arthritis she may have symptoms persist.The risks of knee arthroscopy include incisional numbness, hypersensitive scar, neurovascular compromise, infection, recurrent tearing, persistent pain due to underlying arthritis, medical and anesthetic risks including and is willing to proceed Acute medial meniscus tear of left knee 04/29/2017 02/24/2024 Assessment & Plan (04/29/2017 3:52 PM CDT): Patient notes recurring pain and swelling in her left knee. She did not find a treatment for arthritis with cortisone injection and/or Synvisc to be helpful other than a short period of time of alleviation. The patient may have developed a recurrent degenerative meniscal tear would recommend an MRI of the knee. Once results are available will initiate appropriate treatment. Nontraumatic tear of rotator cuff 11/17/2015 02/24/2024 Overview (10/11/2016): Incomplete rotator cuff tear or rupture of left shoulder, not specified as traumatic Right knee pain 11/13/2012 02/24/2024 Tear of medial cartilage or meniscus of knee, current 11/13/2012 02/24/2024 Encounters Date Type Department Care Team Description 02/01/2025 Telephone [facility] Family Medicine at [address] [place] [id number] Patricia Dill NP 01/04/2025 Telephone [facility] Medicine at [address] [place] [address] Patricia Dill SLOOP CAPTAIN Prior Auth (PA on Rybelsus) from Last 3 Months Immunizations Immunization Administration Dates Next Due Influenza, Unspecified 03/08/2023(Deferred: Liset ent decision) Tdap 03/09/2015,03/13/2013 Surgical History Surgery Date Site/Laterality Comments KNEE ARTHROSCOPY Arthroscopy knee CHOLECYSTECTOMY Cholecystectomy JOINT REPLACEMENT Left COLONOSCOPY Medical History Medical History Date Comments Arthritis Arthritis; Comme nts: KSA 10/19/2014 - Hypertension Hyperlipidemia Type 2 diabetes mellitus Acute medial meniscal tear, left, subsequent encounter 05/06/2017 Acute medial meniscus tear o f left knee 04/29/2017 Aftercare following left kne e joint replacement surgery 12/11/2017 Nontraumatic tear of rotator cuff 11/17/2015 Incomplete rotator cuff tear or rupture of left shoulder, not specified as traumatic Primary osteoarthritis of left knee 11/25/2017 Added automatically from request for surgery [id number] Right knee pain 11/13/2012 Family History Medical History Relation Name Comments Diabetes Brother Heart disease Brother Hypertension Brother Prostate cancer Brother Hypertension Father Hypertension Mother Hypertension Other 1 Family history of Hypertension; Lung cancer Other 2 Family history of Cancer, lung; Colon polyps Sister Diabetes Sister Heart disease Sister Hypertension Sister Ovarian cancer Sister Breast cancer Neg Hx Colon cancer Neg Hx Relation Name Status Comments Brother Father Mother Other 1 Other 2 Sister Social History Tobacco Use Types Packs/Day Years Used Date Smoking Tobacco: Never Smokeless Tobacco: Never Alcohol Use Standard Drinks/Week Comments No 0 (1 standard drink = 0.6 oz pur e alcohol) AUDIT-C Answer Date Recorded Q1: How often do you have a drink containing alc ohol? Monthly or less 06/10/2024 Q2: How many drinks containi ng alcohol do you have on a typical day when you are drinking? 1 or 2 06/10/2024 Q3: How often do you have si x or more drinks on one occasion? Less than monthly 06/10/2024 PHQ-2 Answer Date Recorded PHQ-2 Total Score (If total score is 3 or more points, staff should administer the PHQ-9) 0 06/10/2024 Personal Safety Answer Date Recorded Have you ever been in or are you currently in a harmful physical or emotional relationship or is someone making you feel afraid or unsafe? 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 Not on file Not on file Obstetrics History Para Term AB IAB SAB Ectopic Multiple Livin g Live Births 1 1 1 Date Outcome GA Total Labor Labor/2nd/3rd Weight Sex Type Anes PTL Arabella A1 A5 Name Clin Term Last Filed Vital Signs Vital Sign Reading Time Taken Comments Blood Pressure 130/70 07/21/2024 10:54 AM TRAFFIC MONITOR SPECIALIST Pulse 84 06/10/2024 9:20 AM TRAFFIC MONITOR SPECIALIST Temperature 35.9 C (96.7 F) 05/13/2024 8:31 AM TRAFFIC MONITOR SPECIALIST Respiratory Rate 16 06/10/2024 9:20 AM TRAFFIC MONITOR SPECIALIST Oxygen Saturation 95% 06/10/2024 9:20 AM TRAFFIC MONITOR SPECIALIST Inhaled Oxygen Concentration - - Weight 99.3 kg (219 lb) 07/21/2024 10:54 AM TRAFFIC MONITOR SPECIALIST Height 182.9 cm (6' 0.01) 07/21/2024 10:54 AM Angie TRAVIS Body Mass Index 29.69 07/21/2024 10:54 AM TRAFFIC MONITOR SPECIALIST Plan of Treatment Health Maintenance Due Date Last Done Comments Foot Exam 1965 Hepatitis B Screening 12/28/1981 Pneumococcal vaccine <65 (1 of 2 - PCV) 12/28/1982 Zoster Vaccine (1 of 2) 12/28/2013 Dilated Eye Exam 03/12/2024 03/12/2023 Hemoglobin A1C 12/09/2024 06/10/2024, 02/05, 11/27/2017, Additional history exists Albumin Creatinine Ratio, Urine 02/23/2025 Lipid Panel 02/23/2025 02/24/2024, 04/26/2017 eGFR 02/23/2025 02/24/2024, 12/06/2017 Breast Cancer Screening-Mammogram 02/26/2025 024, 12/15/2012 Influenza Vaccine (#1) 2025 DTaP/Tdap/Td Vaccine (3 - Td or Tdap) 03/09/2025 03/09/2015, 03/13/2013 Depression Screening 06/10/2025 06/10/2024, 02/24/20 Cervical Cancer Screening 07/21/2025 07/21/2024, Regular Well Visit/Exam 18-64 07/21/2025 07/21/2024, 06/10/2024 Colon Cancer Screening-Colonoscopy 05/13/2027 05/13/2024, 05/12/2024 Hepatitis C Screening Completed 02/24/2024 Colon Cancer Screening-CT Colonography Discontinued 05/13/2024, 05/12/2024 Colon Cancer Screening-DNA Stool Discontinued 05/13/20, 05/12/2024 Colon Cancer Screening-FIT Discontinued 05/13/2024, Colon Cancer Screening-Sigmoidoscopy Discontinued 05/13/2024, 05/12/2024 Medical Devices Implanted Type Area Hourly Team Members Device Identifier Shelf Expiration Date Model / Serial / Lot [employer]uy [employer] Smartset High Viscosity Cement Bone 40gm Gentamicin - [id number] Implanted:Qty: 1 on 12/10/2017 by Anthony Arriola MD at [facility] Left: Knee [employer] 03/07/2019 [id number] / / [id number] Attune Rp Tib Base Sz 6 Por - [id number] Implanted:Qty: 1 on 12/10/2017 by Anthony Arriola MD at [facility] Left: Knee [employer] 02/04/2027 [id number] / / [id number] Component Femoral Attune 6 Knee Left Cemented Posterior Stabilize Sterile - [id number] Implanted:Qty: 1 on 12/10/2017 by Anthony Arriola MD at [facility] Left: Knee [employer] 10/06/2027 [id number] / / [id number] Dome Patellar Attune Aox H38 Mm Knee Cemented Medialize Sterile - [id number] Implanted:Qty: 1 on 12/10/2017 by Anthony Arriola MD at [facility] Left: Knee [employer] 08/07/2022 [id number] / / [id number] Insert Tibial 6 7mm Knee Aox Post Stab Rotate Platform - [id number] Implanted:Qty: 1 on 12/10/2017 by Anthony Arriola MD at [facility] Left: Knee [employer] 10/05/2021 [id number] / / [id number] Procedures Procedure Name Priority Date/Time Associated Diagnosis Comments HIGH RISK HPV DNA DETECTION WITH GENOTYPING Routine 07/21/2024 11:03 AM TRAFFIC MONITOR SPECIALIST Screening for cervical cancer POCT HEMOGLOBIN A1C Routine 06/10/2024 9 :29 AM TRAFFIC MONITOR SPECIALIST Type 2 diabetes mellitus with hyperglycemia, with long-term current use of insulin (HCC) COLONOSCOPY 05/13/2024 7:46 AM TRAFFIC MONITOR SPECIALIST SCREENING MAMMOGRAM BILATERAL W REBECCA Schedule Routine, Read Routine (OP Routine) 02/27/2024 10:51 AM CDT Encounter for screening mammogram for malignant neoplasm of breast ALBUMIN CREATININE RATIO, URINE Routine 02/24/2024 11:36 AM CDT Type 2 diabetes mellitus without complication, with long-term current use of insulin (HCC) HEPATITIS C ANTIBODY Routine 02/24/2024 11:32 AM CDT Encounter for hepatitis C screening test for low risk patient EGFR Routine 02/24/2024 11:32 AM CDT Type 2 diabetes mellitus without complication, with long-term current use of insulin (HCC) LIPID PANEL Routine 02/24/2024 11:32 AM CDT Type 2 diabetes mellitus without complication, with long-term current use of insulin (HCC) DIABETIC EYE EXAM Routine 03/12/2023 4:0 7 PM CDT from Last 3 Months or Most Recently Relevant to Health Maintenance Results * High Risk HPV DNA Detection with Genotyping (Molecular component) (07/21/2024 11:03 AM TRAFFIC MONITOR SPECIALIST) HPV HR 16 Not Detected Not Detected [facility] Comment:Testing performed by : [facility], [address] [place]., [address] HPV HR 18 Not Detected Not Detected [facility] Comment:Testing performed by : [facility], [address] [facility] [place] [address] HPV HR Non 16/18 Not Detected Not Detected [facility]AP[facility] Comment: Interpretive Data Nucleic acid amplification for detection of high-risk Human Papilloma virus (HPV) is performed by the Camila Ike 6800 HPV test. This assay specifically detects HPV-16 and HPV-18 genotypes. The following HPV genotypes are detected as high-risk HPV: HPV-31, 33, 35, ,39, 45, 51, 52, 56, 58, 59, 66, and 68. This assay has been approved by the [place] Food and Drug Administration for detection of HPV in cervical specimens collected by a physician using an endocervical brush/spatula or cervical broom and placed in the ThinPrep Pap Test PreservCyt collection containers. The performance characteristics of this test have been verified by the [facility] Molecular Infectious Disease laboratory. Correlate with separately reported cytology results, as applicable. Interpretive data last revised 22 Testing performed by: [facility], [address] [place]., [address] Endocervical 07/21/2024 11:0 3 AM TRAFFIC MONITOR SPECIALIST 07/22/2024 8:26 AM TRAFFIC MONITOR SPECIALIST Narrative [facility] - 07/22/2024 11:50 PM TRAFFIC MONITOR SPECIALIST Clinical history and diagnosis->routine Number of vials->1 Testing type->Screening Last menstrual period (date if known)->postmenopausal us Jay Nava MD LAB BODY FLUIDS AND STOO LS ORDERABLES Final Result [facility] [address] [facility] [place] [address] [facility] * POCT hemoglobin A1c (06/10/2024 9:29 AM TRAFFIC MONITOR SPECIALIST) Hemoglobin A1C, POC 8.1 4.0 - 5.6 % Blood 06/10/2024 9:29 AM TRAFFIC MONITOR SPECIALIST us Patricia Dill NP POINT OF CARE TEST ORDERABLES Final Result * Colonoscopy (05/13/2024 7:46 AM TRAFFIC MONITOR SPECIALIST) Anatomical Region Laterality Modality Other Narrative Procedure Note Garland Lopez MD - 05/13/2024 7:46 AM CST [facility] GI ENDOSCOPY Patient Name: Cris Kline Procedure Date: 05/13/2024 7:46 AM Date of : 1965 Admit Type: Outpatient Age: 58 Gender: Female Attending MD: Garland Lopez M.D. Room: [facility] ENDOSCOPY ROOM 06 Note Status: Finalized Procedure: Colonoscopy Indications: Screening for colorectal malignant neoplasm, poorprep on prior colonoscopy therefore colonoscopy is being repeated Referring MD: Providers: Garland Lopez M.D. Medicines: Monitored Anesthesia Care Complications: No immediate complications. Estimated Blood Loss: Estimated blood loss: none. Procedure: Pre-Anesthesia Assessment: - Prior to the procedure, a History and Physicalwas performed, and patient medications and allergieswere reviewed. The risks and benefits of the procedureand the sedation options and risks were discussed withthe patient. All questions were answered and informed consent was obtained. Patient identification and proposed procedure were verified. After reviewingthe risks and benefits, the patient was deemed in satisfactory condition to undergo the procedure.The anesthesia plan was to use monitored anesthesiacare (MAC). Immediately prior to administration of medications, the patient was re-assessed foradequacy to receive sedatives. The heart rate, respiratory rate, oxygen saturations, blood pressure, adequacyof pulmonary ventilation, and response to care were monitored throughout the procedure. The physical status of the patient was re-assessed after the procedure. The benefits, risks and alternatives of theprocedure and sedation were discussed and informed consentwas obtained. All questions were answered. Please referto the signed informed consent document in the medical record. The scope was passed under direct vision.The Colonoscope was introduced through the anus and advanced to the cecum, identified by appendiceal orifice and ileocecal valve. The colonoscopy was performed without difficulty. The patient tolerated the procedure well. The quality of the bowel preparation was good. Scope withdrawal time was 14 minutes. Prep was administered in a split dose. Findings: The perianal and digital rectal examinations were normal. A few small-mouthed diverticula were found in the sigmoid colon. Non-bleeding internal hemorrhoids were found during retroflexion. The hemorrhoids were small. The exam was otherwise without abnormality. Impression: - Diverticulosis in the sigmoid colon. - Non-bleeding internal hemorrhoids. - The examination was otherwise normal. - No specimens collected. Recommendation: - Patient has a contact number available for emergencies. The signs and symptoms of potential delayed complications were discussed with thepatient. Return to normal activities tomorrow. Written discharge instructions were provided to thepatient. - High fiber diet. - Continue present medications. - Await pathology results. - Repeat colonoscopy in 3 years for surveillance.All future procedures with extended bowel prep. Garland Lopez M.D. Garland Lopez M.D. 05/13/2024 8:32:53 AM . Number of Addenda: 0 Note Initiated On: 05/13/2024 7:46 AM Recognized by the [employer] for promoting quality in endoscopy us Garland Lopez MD ENDOSCOPY PROCEDURES Final Resul t * SCREENING MAMMOGRAM BILATERAL W REBECCA (02/27/2024 10:51 AM CDT) Anatomical Region Laterality Modality Breast Bilateral Mammography Impressions 02/28/2024 12:29 PM CDT BI-RADS ATLAS category (overall): 1 - Negative There is no mammographic evidence of malignancy. A 1 year screening mammogram is recommended. The patient has been or will be contacted. We recommend annual screening mammography for women at average risk of breast cancer beginning at age 40, based on guidelines of the [employer] (ACR Practice Parameter for the Performance of Screening and Diagnostic Mammography) and [employer]. For women with and elevated risk of breast cancer, please refer to the ACR Practice Parameter for specific screening recommendations. The patient will be entered into a reminder system with a target due date of 1 year for her next screening exam. Narrative 02/28/2024 12:29 PM CDT SCREENING MAMMOGRAM BILATERAL W REBECCA: 02/27/24 The study was acquired using full field digital technology and interpreted from soft copy. 2D digital mammographic views, as well as 3D digital tomosynthesis were performed in the CC and MLO projections. CLINICAL: Encounter for screening mammogram for malignant neoplasm of breast. No relevant medical history has been documented for this patient. No known family history of breast cancer. COMPARISONS: 03/20/2021 Breast Imaging Screening Outside Reference 04/20/2019 Breast Imaging Screening Outside Reference 02/25/2018 Breast Imaging Screening Outside Reference 12/16/2012 Screening Mammogram BREAST TISSUE: There are scattered areas of fibroglandular density. FINDINGS: No suspicious masses, suspicious calcifications, or other suspicious findings are seen within either breast. There has been no suspicious change. us Patricia Dill NP IMG MAMMO PROCEDURES Final Re sult * Albumin Creatinine Ratio, Urine (02/24/2024 11:36 AM CDT) Albumin Ur 16.8 mg/L Comment: Interpretive Data No reference range established. Current interpretive data was last revised 2018. Creatinine Ur 172.0 mg/dL [facility] Comment: Interpretive Data No reference range established. Current interpretive data was last revised 2018. Albumin Creatinine Ratio, Ur 10 1 - 29 mg/g [facility]MAN Urine 02/24/2024 11:3 6 AM CDT 02/24/2024 12:48 PM CDT us Patricia Dill NP LAB URINE ORDERABLES Final Re sult [facility] [address] [facility] [place] [address] * eGFR (02/24/2024 11:32 AM CDT) eGFR >90 >=60 mL/min/1. 73 m2 Comment: Interpretive Data Reference Interval Normal >/= 90 mL/min/1.73m2 Mildly decreased* 60 - 89 mL/min/1.73m2 Mildly to moderately decreased 45 - 59 mL/min/1.73m2 Moderately to severely decreased 30 - 44 mL/min/1.73m2 Severely decreased 15 - 29 mL/min/1.73m2 Kidney Failure < 15 mL/min/1.73m2 *Relative to young adult level Estimated glomerular filtration rate is determined by the 2020 CKD-EPI equation recommended by the National Kidney Foundation (A Unifying Approach to GFR Estimation: Recommendations of the NKF-ASK Task Force on Reassessing the Inclusion of Race in Diagnosing Kidney Disease, JASN 2020). The CKD-EPI equation should not be used for patients with unstable renal function and has not been validated in children and those over 70. Current interpretive data was last reviewed 2021. Blood 02/24/2024 11:3 2 AM CDT 02/24/2024 12:48 PM CDT Patricia Dill NP LAB BLOOD ORDERABLES Final Re sult [facility] [address] [facility] [place] [address] * Hepatitis C antibody Blood (02/24/2024 11:32 AM CDT) Hep C Ab Nonreactive Nonreactive Comment: Antibodies to HCV not detected. Does NOT exclude the possibility of recent exposure to HCV. Current interpretive data was last revised on 22 Interpretive Data Nonreactive: Antibodies to HCV not detected. Does NOT exclude the possibility of recent exposure to HCV. Equivocal: Equivocal for HCV antibodies. Supplemental molecular testing will be automatically performed to determine infection status in accordance with current CDC screening recommendations. Reactive: Positive for HCV antibodies. This may represent current or past HCV infection. Supplemental molecular testing will be automatically performed to determine current infection status in accordance with current CDC screening recommendations. Interpretive data was last revised on 2019. Blood 02/24/2024 11:3 2 AM CDT 02/24/2024 12:48 PM CDT us Patricia J. Brown SLOOP CAPTAIN LAB MICROBIOLOGY - GENERAL OR DERABLES Final Result [facility] [address] [facility] [place] [address] * (ABNORMAL) Lipid panel (02/24/2024 11:32 AM CDT) Cholesterol 233(H) 30 - 199 mg/dL Comment: Interpretive Data Ages < or = 19 years Acceptable: <170 mg/dL Borderline high: 170-199 mg/dL High: >or= 200 mg/dL Ages > or = 20 years Desirable: <200 mg/dL Borderline high: 200-239 mg/dL High: >or= 240 mg/dL Literature References: 1. Expert Panel on Integrated Guidelines for Cardiovascular Health and Risk Reduction in Children and Adolescents. Pediatrics 2011;128:S213 2. NCEP Expert Panel. Circulation 2004;110:227 Current Interpretive Data was last revised on 2018. Triglycerides 159(H) <=149 mg/dL [facility]UREN Comment: Interpretive Data Ages < or = 9 years Acceptable: <75 mg/dL Borderline high: 75-99 mg/dL High: >or= 100 mg/dL Ages 10 to 20 years Acceptable: <90 mg/dL Borderline high: 90-129 mg/dL High: >or= 130 mg/dL Ages > or = 20 years Desirable: <150 mg/dL Borderline high: 150-199 mg/dL High: 200-499 mg/dL Very high: >or= 499 mg/dL Literature References: 1. Expert Panel on Integrated Guidelines for Cardiovascular Health and Risk Reduction in Children and Adolescents. Pediatrics 2011;128:S213 2. NCEP Expert Panel. Circulation 2004;110:227 Current Interpretive Data was last revised on 2018. HDL 52 >=40 mg/dL LAUREN Comment: Interpretive Data Ages < or = 19 years Acceptable: >45 mg/dL Borderline low: 40-45 mg/dL Low: <40 mg/dL Ages > or = 20 years Desirable: >or= 60 mg/dL Low: <40 mg/dL Literature References: 1. Expert Panel on Integrated Guidelines for Cardiovascular Health and Risk Reduction in Children and Adolescents. Pediatrics 2011;128:S213 2. NCEP Expert Panel. Circulation 2004;110:227 Current Interpretive Data was last revised on 2018. LDL, calculated 149(H) <=129 mg/dL [facility] Comment: Interpretive Data Ages < or = 19 years Acceptable: <110 mg/dL Borderline high: 110-129 mg/dL High: >or= 130 mg/dL Ages > or = 20 years Optimal: <100 mg/dL Near optimal: 100-129 mg/dL Borderline high: 130-159 mg/dL High: >160 mg/dL Literature References: 1. Expert Panel on Integrated Guidelines for Cardiovascular Health and Risk Reduction in Children and Adolescents. Pediatrics 2011;128:S213 2. NCEP Expert Panel. Circulation 2004;110:227 Current Interpretive Data was last revised on 2018. Non-HDL Cholesterol 181 mg/dL [facility] CHAPMAN Comment: Interpretive Data Ages < or = 19 years Acceptable: <120 mg/dL Borderline high: 120-144 mg/dL High: >145 mg/dL Ages > or = 20 years When triglycerides are >200 mg/dL, Non-HDL cholesterol is a secondary target of therapy with treatment goals that are 30 mg/dL greater than the LDL cholesterol target. Literature References: 1. Expert Panel on Integrated Guidelines for Cardiovascular Health and Risk Reduction in Children and Adolescents. Pediatrics 2011;128:S213 2. NCEP Expert Panel. Circulation 2004;110:227 Current Interpretive Data was last revised on 2018. Chol/HDL ratio 4 [facility] CHAPMAN Blood 02/24/2024 11:3 2 AM CDT 02/24/2024 12:48 PM CDT Patricia Dill NP LAB BLOOD ORDERABLES Final Re sult [facility] [address] [facility] [place] [address] * Diabetic Eye Exam (03/12/2023 4:07 PM CDT) Historical Provider HEALTH MAINTENANCE Final Result from Last 3 Months or Most Recently Relevant to Health Maintenance Insurance [email or web address] [facility] [place] [address] Advance Directives For more information, please contact: [phone] * Full Code (Latest Code Status on File) Date Activated Date Inactivated Comments 12/13/2017 1:14 PM 05/12/2024 6:58 AM * Full Code Date Activated Date Inactivated Comments 12/10/2017 3:40 PM 12/11/2017 7:13 PM Care Teams Monitor Worker Relationship Specialty Start Date End Date Patricia Dill NP [address] [place] [address] [place] [id number] PCP - General Family Medicine 02/24/24 Patrizia Olguin PTA Director Supply Chain Physical Therapy 12/06/17
--- OUTSIDE RECORDS SUMMARY | 2025-03-26 21:58 | XMS_ITS | Clinical Summary ---
Author Organization 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
--- OUTSIDE RECORDS SUMMARY | 2025-03-26 21:58 | XMS_ITS | Clinical Summary ---
Author Organization [facility] Address [address] [place] [address] Care Team Providers Care Offset Press Operator Name Role Phone Alex Owens MD Primary Care Provider Gabo Herrera MD Unavailable [phone] Walter Lewis MD Unavailable [phone] Source Comments [facility],non-owned Affiliates and Associated Physician Practices is amultiple site organization consisting of ambulatory clinics and hospital sitesin [place], [place], [place] and [place]. This disclosure is being madepursuant to the Care Everywhere program and may not contain all information available regarding this patient. Last updated 18.[facility] Allergies No known active allergies Medications * Be aware that medications may not be up to date on this document. Alwaysverify current medications with the patient. 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 Gender Identity Not on file Sexual Orientation Not on file Last Filed Vital Signs Vital Sign Reading Time Taken Comments Blood Pressure 163/102 11/13/2012 2:28 PM CDT Pulse 80 11/13/2012 2:28 PM CDT Temperature - - Respiratory Rate - - Oxygen Saturation - - Inhaled Oxygen Concentration - - Weight 102.1 kg (225 lb) 11/13/2012 2:28 PM CDT Height 182.9 cm (6') 11/13/2012 2:28 PM CDT Body Mass Index 30.52 11/13/2012 2:28 PM CDT Plan of Treatment Health Maintenance Due Date Last Done Comments COLOGUARD (AGES 45-75) - COL ON CA SCREENING 1965 COLON MONITORING 1965 COLONOSCOPY - COLON CA SCREENING 1965 CT COLONOGRAPHY - COLON CA SCREENING 1965 Colorectal Cancer Screening 1965 FIT - COLON CA SCREENING 1965 FLEX SIG - COLON CA SCREENING 1965 LIPID TESTING 1965 MAMMOGRAM 1965 HIV SCREENING 12/28/1978 HEPATITIS C SCREENING 12/24/1981 DTAP/TDAP/TD VACCINES (1 - Tdap) 12/28/1982 PNEUMOCOCCAL VACCINE 50+ (1 of 1 - PCV) 12/28/2013 ZOSTER VACCINE (1 of 2) 12/28/2013 DEPRESSION SCREENING 07/08/2024 COVID-19 VACCINE (1 - 2023-2 5 season) 2025 INFLUENZA VACCINE (#1) 2025 Respiratory Syncytial Virus (RSV) Vaccine Pt: or over 60 yrs (1 - 1-dose 75+ series) 12/28/2038 HEPATITIS B VACCINE Aged Out No longe r eligible based on patient's age to complete this topic HIB VACCINE Aged Out No longer eligi ble based on patient's age to complete this topic HPV VACCINE Aged Out No longer eligi ble based on patient's age to complete this topic MENINGOCOCCAL (Group B) VACC INE SHARED DECISION-MAKING Aged Out No longer eligibl e based on patient's age to complete this topic MENINGOCOCCAL GROUPS A/C/Y/W VACCINE Aged Out No longer eligible b ased on patient's age to complete this [place] [place] [address] [employer] Care Teams Offset Press Operator Relationship Specialty Start Date End Date Alex Owens MD PCP - General Internal Medicine 11/13/12 Gabo Herrera MD Orthopedic Surgery 11/13/12 Walter Lewis MD Orthopedic Surgery 11/28/12
--- OUTSIDE RECORDS SUMMARY | 2025-03-26 21:58 | XMS_ITS | Clinical Summary ---
Author Organization [facility] Physician Office Building [address] [place] [id number] Care Team Providers Care Automatic Pilot Mechanic Name Role Phone Patrizia Olguin PTA Unavailable Unavailable Patricia Dill NP Primary Care Provider [phone] Allergies No known active allergies Medications hydroCHLOROthiazi [...] ONCE DAILY 024 Active cholecalciferol (VITAMIN D-3) 62922 unit capsule Take 1 capsule (10,000 Units [...] daily Active blood-glucose meter,continuous (Dexcom G7 Manager Ed) miscIndications:T ype 2 diabetes mellitus with hyperglycemia, with long-term current use of insulin ([facility]) Check blood sugars 4-6 times daily 1 each 024 Active blood-glucose sensor (Dexcom G7 Sensor) deviceIndications :Type 2 diabetes mellitus with hyperglycemia, with long-term current use of insulin ([facility]) Change every 10 days. Check blood sugars 4-6 times daily 3 each 024 Active blood-glucose meter miscIndications:T ype 2 diabetes mellitus with hyperglycemia, with long-term current use of insulin ([facility]) Use daily or as directed for monitoring of diabetes. 1 each 024 Active blood glucose diagnostic (glucose blood) stripIndications: Type 2 diabetes mellitus with hyperglycemia, with long-term current use of insulin ([facility]) One strip three times daily 300 each 1 024 2024 Active lancets miscIndications:T ype 2 diabetes mellitus with hyperglycemia, with long-term current use of insulin ([facility]) 1 each by other route 3 (three) times a day 300 each 1 024 Active semaglutide (RYBELSUS) 14 mg tablet Take 1 tablet (14 mg total) by mouth early childhood special educator before breakfast 30 tablet 2 025 Active [...] 04/25/2017 Assessment & Plan (06/10/2024 9:36 AM CHLOROBUTADIENE SCRUBBER OPERATOR): HPI: Condition is not at/near goal. Has [...] labs. Continue lovastatin 20 mg nightly and [place] 3. Will follow up in a few [...] lower carb lifestyle and exercise. The brand [employer] Professional [place] 3 2100 Olcenic Blend is a good brand and you will only need to take one capsule daily. Hypertension 04/25/2017 Assessment & Plan (06/10/2024 9:48 AM CHLOROBUTADIENE SCRUBBER OPERATOR): HPI: Condition is stable. A&P: Discussed/ordered labs. [...] 04/25/2017 Assessment & Plan (06/10/2024 12:41 PM CHLOROBUTADIENE SCRUBBER OPERATOR): Condition is improving, but not at goal. [...] Diabetes Complications History of macrovascular disease (CVA, [place], PVD) is not present. Complications secondary to [...] Diabetes Complications History of macrovascular disease (CVA, [place], PVD) is not present. Complications secondary to [...] Diabetes Complications History of macrovascular disease (CVA, [place], PVD) is not present. 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 Arthritis of right knee 12/31/2016 Assessment & [...] (11/25/2017): Added automatically from request for surgery [id number] Acute medial meniscal tear, left, subsequent encounter 05/06/2017 02/24/2024 Assessment & Plan (07/15/2017 8:25 AM CHLOROBUTADIENE SCRUBBER OPERATOR): Patient's symptoms are likely due to her [...] Type Department Care Team Description 02/01/2025 Telephone [facility] Medical [facility] Family Medicine at [address] [place] [id number] Patricia Dill NP 01/04/2025 Telephone [facility] Medicine at [address] [place] [address] Patricia Dill SEATER ASSEMBLER Prior Auth ([place] on [employer]) from Last [...] 11/25/2017 Added automatically from request for surgery [id number] Right knee pain 11/13/2012 Family History Medical [...] on file Legal Sex Female 5:19 PM CHLOROBUTADIENE SCRUBBER OPERATOR Gender Identity Female 02/25/2024 6:30 PM CDT Sexual Orientation Straight 02/25/2024 6: 30 PM CDT 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 Not on file Not on file Not on file Obstetrics History Para Term AB IAB SAB Ectopic Multiple Livin g Live Births 1 1 1 Date Outcome GA Total Labor Labor/2nd/3rd Weight Sex Type Anes PTL Arabella A1 A5 Name Clin Term Last Filed Vital Signs Vital Sign Reading Time Taken Comments Blood Pressure 130/70 07/21/2024 10:54 AM CHLOROBUTADIENE SCRUBBER OPERATOR Pulse 84 06/10/2024 9:20 AM CHLOROBUTADIENE SCRUBBER OPERATOR Temperature 35.9 C (96.7 F) 05/13/2024 8:31 AM CHLOROBUTADIENE SCRUBBER OPERATOR Respiratory Rate 16 06/10/2024 9:20 AM CHLOROBUTADIENE SCRUBBER OPERATOR Oxygen Saturation 95% 06/10/2024 9:20 AM CHLOROBUTADIENE SCRUBBER OPERATOR Inhaled Oxygen Concentration - - Weight 99.3 kg (219 lb) 07/21/2024 10:54 AM CHLOROBUTADIENE SCRUBBER OPERATOR Height 182.9 cm (6' 0.01) 07/21/2024 10:54 AM Angie TRAVIS Body Mass Index 29.69 07/21/2024 10:54 AM CHLOROBUTADIENE SCRUBBER OPERATOR Plan of Treatment Health Maintenance Due Date [...] 05/13/2024, 05/12/2024 Medical Devices Implanted Type Area Explosive Ordnance Specialist Device Identifier Shelf Expiration Date Model / Serial / Lot Depuy [employer] Smartset High Viscosity Cement Bone 40gm Gentamicin - [id number] Implanted:Qty: 1 on 12/10/2017 by Anthony Arriola MD at [facility] Left: Knee [employer] 03/07/2019 [id number] / / [id number] Attune Rp Tib Base Sz 6 Por - [id number] Implanted:Qty: 1 on 12/10/2017 by Anthony Arriola MD at [facility] Left: Knee [employer] 02/04/2027 [id number] / / [id number] Component Femoral Attune 6 Knee Left Cemented Posterior Stabilize Sterile - [id number] Implanted:Qty: 1 on 12/10/2017 by Anthony Arriola MD at [facility] Left: Knee [employer] 10/06/2027 [id number] / / [id number] Dome Patellar Attune Aox H38 Mm Knee Cemented Medialize Sterile - [id number] Implanted:Qty: 1 on 12/10/2017 by Anthony Arriola MD at [facility] Left: Knee [employer] 08/07/2022 [id number] / / [id number] Insert Tibial 6 7mm Knee Aox Post Stab Rotate Platform - [id number] Implanted:Qty: 1 on 12/10/2017 by Anthony Arriola MD at [facility] Left: Knee [employer] 10/05/2021 [id number] / / [id number] Procedures Procedure Name Priority Date/Time Associated Diagnosis Comments HIGH RISK HPV DNA DETECTION WITH GENOTYPING Routine 07/21/2024 11:03 AM CHLOROBUTADIENE SCRUBBER OPERATOR Screening for cervical cancer POCT HEMOGLOBIN A1C Routine 06/10/2024 9 :29 AM CHLOROBUTADIENE SCRUBBER OPERATOR Type 2 diabetes mellitus with hyperglycemia, with long-term current use of insulin ([facility]) COLONOSCOPY 05/13/2024 7:46 AM CHLOROBUTADIENE SCRUBBER OPERATOR SCREENING MAMMOGRAM BILATERAL W REBECCA Schedule Routine, [...] with Genotyping (Molecular component) (07/21/2024 11:03 AM CHLOROBUTADIENE SCRUBBER OPERATOR) HPV HR 16 Not Detected Not Detected [facility] Comment:Testing performed by : [facility], [address] [place] [address] HPV HR 18 Not Detected Not Detected LAUREN CHAPMAN Comment:Testing performed by : [facility], [address] [facility] [place]., [address] HPV HR Non 16/18 Not Detected Not [...] this test have been verified by the [facility] Molecular Infectious Disease laboratory. Correlate with separately reported cytology results, as applicable. Interpretive data last revised 22 Testing performed by: [facility], [address] [place]., [address] Endocervical 07/21/2024 11:0 3 AM CHLOROBUTADIENE SCRUBBER OPERATOR 07/22/2024 8:26 AM CHLOROBUTADIENE SCRUBBER OPERATOR Narrative [facility] - 07/22/2024 11:50 PM CHLOROBUTADIENE SCRUBBER OPERATOR Clinical history and diagnosis->routine Number of vials->1 Testing type->Screening Last menstrual period (date if known)->postmenopausal us Jay Nava MD LAB BODY FLUIDS AND STOO LS ORDERABLES Final Result [facility] [address] [facility] Department [place] [address] [facility] * POCT hemoglobin A1c (06/10/2024 9:29 AM CHLOROBUTADIENE SCRUBBER OPERATOR) Hemoglobin A1C, POC 8.1 4.0 - 5.6 % Blood 06/10/2024 9:29 AM CHLOROBUTADIENE SCRUBBER OPERATOR us Patricia Dill NP POINT OF CARE TEST ORDERABLES Final Result * Colonoscopy (05/13/2024 7:46 AM CHLOROBUTADIENE SCRUBBER OPERATOR) Anatomical Region Laterality Modality Other Narrative Procedure Note Garland Lopez MD - 05/13/2024 7:46 AM CST [facility] ER GI ENDOSCOPY Patient Name: Cris Kline Procedure Date: 05/13/2024 7:46 AM Date of : 1965 Admit Type: Outpatient Age: 58 Gender: Female Attending MD: Garland Lopez M.D. Room: [facility] ENDOSCOPY ROOM 06 Note Status: Finalized Procedure: [...] On: 05/13/2024 7:46 AM Recognized by the [employer] for promoting quality [...] age 40, based on guidelines of the [employer] (ACR Practice Parameter for the Performance of Screening and Diagnostic Mammography) and [employer]. For women [...] URINE ORDERABLES Final Re sult [facility]UR[facility] CHAPMAN [address] [facility] Department [place] [address] * eGFR (02/24/2024 11:32 AM [...] LAB BLOOD ORDERABLES Final Re sult LAUREN [address] [facility] Department [place] [address] * Hepatitis C antibody Blood (02/24/2024 11:32 [...] 12:48 PM CDT us Patricia J. Brown SEATER ASSEMBLER LAB MICROBIOLOGY - GENERAL OR DERABLES Final Result LAUREN [address] [facility] Department [place] [address] * (ABNORMAL) Lipid panel (02/24/2024 11:32 AM [...] LAB BLOOD ORDERABLES Final Re sult LAUREN [address] [facility] Department [place] [address] * Diabetic Eye Exam (03/12/2023 4:07 PM CDT) Historical Provider HEALTH MAINTENANCE Final Result from Last 3 Months or Most Recently Relevant to Health Maintenance Insurance [facility] [employer] [facility] [employer] OPEN ACCESS Member Subscriber Plan / Payer (Ef fective 2024-Present) Name:Cris Kline Relation to Subscriber:Self Name:Cris Kline Payer ID:[id number] Type:[employer] HMO/PPO Address: [employer] [id number] [place] [address] [place] [address] Advance Directives For more information, please contact: [phone] * Full Code (Latest Code Status on File) Date Activated Date Inactivated Comments 12/13/2017 1:14 PM 05/12/2024 6:58 AM * Full Code Date Activated Date Inactivated Comments 12/10/2017 3:40 PM 12/11/2017 7:13 PM Care Teams Automatic Pilot Mechanic Relationship Specialty Start Date End Date Patricia Dill NP [address] [place] [address] [place] [id number] PCP - General Family Medicine 02/24/24 Patrizia Olguin PTA Chief Nurse Executive Physical Therapy 12/06/17
[2025-03-26] MEDS: KETOROLAC 30 MG/ML VIAL (*BKC) 15 MG IM (22:00)
[2025-03-26 22:46] VITALS: BP 170/80; PULSE 78; RESP 14; TEMP 36.6; O2SAT 99
--- NOTE | 2025-03-27 05:10 | ED.LOWEXIN ---
HPI - Extremity Injury (Lower) General Chief Complaint: Extremity Injury, Lower Stated Complaint: right knee pain, unable to bear weight x 2 weeks Time Seen by Provider: 03/26/25 21:45 History of Present Illness HPI Narrative: Patient with history severe arthritis, with left knee replacement years ago, presents here now with pain to her right knee, sometimes feels like it is going to give out. Has been trying a knee brace. Follow-up appointment with Orthopedics on Saturday Related Data Home Medications ?Medication ?Instructions ?Recorded ?Confirmed ?Last Taken ?Type amlodipine 10 mg tablet 10 mg PO DAILY 06/29/19 02/15/22 02/15/22 05:30 History chlorthalidone 25 mg tablet 25 mg PO DAILY 06/29/19 02/15/22 02/14/22 History dulaglutide 1.5 mg/0.5 mL 0.5 mg subcut WEEKLY 06/29/19 02/15/22 02/13/22 History subcutaneous pen injector (Trulicity) glimepiride 4 mg tablet 4 mg PO BID 06/29/19 02/15/22 02/14/22 History famotidine 20 mg tablet 20 mg PO DAILY PRN Acid Reflux 02/09/22 02/09/22 Unknown History metformin 500 mg tablet 500 mg PO BID 02/09/22 02/15/22 02/14/22 History Allergies Allergy/AdvReac Type Severity Reaction Status Date / Time No Known Allergies Allergy Unverified 02/09/22 09:20 Review of Systems Review of Systems: All systems reviewed & are unremarkable except as noted in HPI and below PMFSH Past Medical History Medical History (Updated 03/27/25 @ 00:00 by Background Daemon) GERD (gastroesophageal reflux disease) Migraine Diabetes Hypertension Hyperlipidemia Surgical History Surgical History History of breast surgery History of endometrial ablation Family History Family History Mother Patient's mother is Hypertension Sibling Hypertension Family history of diabetes mellitus in first degree relative Carcinoma of colon Family history of malignant neoplasm of uterus Father Family history of lung cancer Social History Social History Smoking status: Never smoker Second hand tobacco smoke exposure: No Alcohol intake: never Substance use: never Substance use type: does not use Living arrangements: with family Spiritual care concerns: No Exam Narrative: EXAMINATION OF ORGAN SYSTEMS/BODY AREAS: Constitutional: Vital signs per nursing GENERAL:[No acute distress, non-toxic appearing.] HEAD: Normal with no signs of head trauma. EYES: EOMI, conjunctiva normal ENT: Hearing grossly intact LUNGS: Nonlabored breathing. HEART: [Regular rate and rhythm] ABD: [Soft], [nontender to palpation] EXT: Normal range of motion; no significant joint effusion palpable. SKIN: [No rashes or lesions.] No overlying erythema. NEURO: [Alert and oriented x 3. No gross focal sensory or strength deficits.] PSYCH: Normal affect Course Vital Signs Vital signs: Vital Signs Temperature 97.9 F 03/26/25 19:36 Pulse Rate 94 03/26/25 19:36 Respiratory Rate 15 03/26/25 19:36 Blood Pressure 149/91 H 03/26/25 19:36 Pulse Oximetry 98 03/26/25 19:36 Oxygen Delivery Room Air 03/26/25 19:36 Temperature 97.9 F 03/26/25 22:46 Pulse Rate 78 03/26/25 22:46 Respiratory Rate 14 03/26/25 22:46 Blood Pressure 170/80 H 03/26/25 22:46 Pulse Oximetry 99 03/26/25 22:46 Oxygen Delivery Room Air 03/26/25 19:36 MDM - Extremity Injury (Lower) MDM Narrative Medical decision making narrative: Patient presents with right knee pain, acute on chronic she has normal range of motion here, no overlying redness, have very low concern for septic arthritis given, suspect severe arthritis, x-ray on my independent interpretation consistent with arthritis. Discussed with patient, will give Toradol IM here and start course of steroids and she has follow-up with her orthopedic surgeon in 3 days. Return precautions discussed Discharge Plan Discharge Clinical Impression: Knee pain Patient Disposition: Home Condition: Stable Instructions: Knee Pain (ED) Additional Instructions: Please follow-up with your orthopedic surgeon as scheduled next week, try the medications as prescribed, continue using the knee brace and try not to overuse your knee. If your symptoms worsen or you are unable to walk, you can come back to the hospital Patient Language: Icelandic Prescriptions: New prednisone 20 mg tablet 40 mg PO DAILY 4 Days Qty: 8 0RF No Action metformin 500 mg tablet 500 mg PO BID famotidine 20 mg tablet 20 mg PO DAILY PRN (Reason: Acid Reflux) hydrocodone-acetaminophen 5-325 mg tablet 1 tablet PO Q6H PRN (Reason: pain) Qty: 7 0RF chlorthalidone 25 mg tablet 25 mg PO DAILY amlodipine 10 mg tablet 10 mg PO DAILY glimepiride 4 mg tablet 4 mg PO BID Trulicity 1.5 mg/0.5 mL pen injector 0.5 mg SUBCUT WEEKLY Patient Comments: PT TAKES ON TUESDAYS Follow-up/Referrals: Marko,Patricia Vergara, MORTGAGE ANALYST [Primary Care Provider, Unknown]
== END 2025-03-26 22:21 | disposition home or self-care (01) ==
LOC: ANHED 21:56
PROVIDERS: Emergency Provider Emergency Medicine
DX: M25.561 Pain in right knee (principal); I10 Essential (primary) hypertension; E11.9 Type 2 diabetes mellitus without complications; E78.5 Hyperlipidemia, unspecified; K21.9 Gastro-esophageal reflux disease without esophagitis; Z79.85 Long-term (current) use of injectable non-insulin antidiabetic drugs; Z79.84 Long term (current) use of oral hypoglycemic drugs; Z79.899 Other long term (current) drug therapy
CPT/HCPCS: 73564; 96372; 99283; J1885; J7512